=== PATIENT | female | born 1995 | race Two or more races ===

== ENCOUNTER 2016-07-27 19:14 | Emergency (ER) | payer MEDICAID ==
[~2016-07-27] VITALS: Ht 157.5 cm; Wt 65.8 kg
[2016-07-27 19:49] LABS: Urine Bilirubin Negative (Negative); Urine Blood Negative /uL (Negative); Urine Color Yellow (Yellow); Urine Glucose Normal (Normal); Urine Ketone Negative (Negative); Urine Mucus FEW (None Seen); Urine Nitrite Negative (Negative); Urine RBC 1 /hpf (0 - 4); Urine Squamous Epithelial Cell MOD /hpf (<5); Urine Urobilinogen Normal (Negative); Urine pH 6.5 (5.0-8.0)
[2016-07-27 19:59] VITALS: BP 126/86
[2016-07-27] MEDS ORDERED: KETOROLAC TROMETH 60MG/2ML VIAL IM ONE (20:30)
== END 2016-07-27 21:09 | disposition home or self-care (01) ==
LOC: ER 19:18
DX: L05.91 Pilonidal cyst without abscess (principal); N39.0 Urinary tract infection, site not specified; B99.9 Unspecified infectious disease
CPT/HCPCS: 81001; 81025; 96372; 99284; J1885

== ENCOUNTER 2016-08-01 09:46 | Emergency (ER) | payer MEDICAID ==
[~2016-08-01] VITALS: Ht 154.9 cm; Wt 68.0 kg
[2016-08-01 11:36] VITALS: BP 116/71
== END 2016-08-01 12:34 | disposition home or self-care (01) ==
LOC: ER 09:46
DX: L02.91 Cutaneous abscess, unspecified (principal); Z48.01 Encounter for change or removal of surgical wound dressing

== ENCOUNTER 2016-09-04 08:03 | Emergency (ER) | payer MEDICAID ==
[~2016-09-04] VITALS: Ht 152.4 cm; Wt 65.8 kg
[2016-09-04 08:13] VITALS: BP 126/78
[2016-09-04] MEDS ORDERED: cefTRIAXone SOD 1,000 MG VL IM ONE (08:45)
[2016-09-04] MEDS ORDERED: ONDANSETRON HCL 4 MG/2 ML VIAL IM ONE (08:45)
[2016-09-04] MEDS ORDERED: HYDROmorphone HCL 2 MG/ML VL IM ONE (08:45)
== END 2016-09-04 09:26 | disposition home or self-care (01) ==
LOC: ER 08:03
DX: L02.31 Cutaneous abscess of buttock (principal); Z88.8 Allergy status to other drugs, medicaments and biological substances
CPT/HCPCS: 10060; 96372; 99284; J0696; J1170; J2405